=== PATIENT | male | born 1990 | race Caucasian/White ===

== ENCOUNTER 2019-04-11 18:08 | Emergency (ER) | payer SELFPAY ==
[~2019-04-11] VITALS: Ht 180.3 cm; Wt 95.3 kg
[2019-04-11 19:30] VITALS: BP 126/81
[2019-04-11 19:32] LABS: Eosinophils # (auto) 0 uL; Eosinophils % (auto) 0.4 % (0.0-7.0); Hemoglobin 18.8 g/dL (13.5-17.5); Neutrophils # (auto) 9.4 uL
[2019-04-11 19:33] LABS: Basophils # (auto) 0.1 uL; Basophils % (auto) 0.5 % (0.0-2.0); Lymphocytes # (auto) 1.4 uL; Lymphocytes % (auto) 11.8 % (10.0-50.0); Mean Corpuscular Hemoglobin 31.3 pg (28.0-32.0); Mean Corpuscular Hgb Conc. 35.4 g/dL (32.0-36.0); Mean Corpuscular Volume 88.5 fL (80.0-100.0); Monocytes # (auto) 0.7 uL; Monocytes % (auto) 6.1 % (0.0-12.0); Neutrophils % (auto) 81.2 % (37.0-80.0); Nucleated Red Blood Cells % 0.5 %; Platelet Count (auto) 247 10^3/uL (140-450); Red Blood Cells 5.99 10^6/uL (4.5-5.90); Red Cell Distribution Width 12.5 % (11.8-14.3); White Blood Cell 11.6 10^3/uL (4.4-10.8)
[2019-04-11 19:36] LABS: Albumin 3.9 g/dL (3.4-5.0); BUN/Creatinine Ratio 11.2; Calcium 9.2 mg/dL (8.5-10.1)
[2019-04-11 19:38] LABS: Bilirubin, Total 0.9 mg/dL (0.2-1.0)
[2019-04-11] MEDS ORDERED: THIAMINE 100mg/ml INJ (200mg/2ml VIAL) ONE (20:41)
[2019-04-11] MEDS ORDERED: levETIRAcetam 500 MG/5ML INJ IV ONE (20:50)
[2019-04-12] MEDS ORDERED: FOLIC ACID 1 MG, MULTIPLE VITAMIN 10 ML, MAGNESIUM SULF SDV 50% 8 MEQ, THIAMINE INJ 100... INJ SCH ×5 (12:00)
== END 2019-04-11 23:50 | disposition home or self-care (01) ==
LOC: EDBD 18:08 → ER 18:10
DX: G40.909 Epilepsy, unspecified, not intractable, without status epilepticus (principal)
CPT/HCPCS: 36415; 70450; 72125; 80053; 80320; 85025; 96365; 96367; 99285; J1953; J3411; J7060

== ENCOUNTER 2020-08-10 02:27 | Emergency (ER) | payer SELFPAY ==
[~2020-08-10] VITALS: Ht 180.3 cm; Wt 90.7 kg
[2020-08-10 02:28] VITALS: BP 139/100
== END 2020-08-10 03:13 | disposition home or self-care (01) ==
LOC: ER 02:29
DX: R56.9 Unspecified convulsions (principal); Z76.0 Encounter for issue of repeat prescription

== ENCOUNTER 2021-03-27 14:10 | Inpatient (IN) | payer MEDICAID, OTHER ==
[~2021-03-27] VITALS: Ht 180.3 cm; Wt 99.8 kg
[2021-03-27] MEDS ORDERED: LORazepam 2MG/ML-1ML VIAL ONE (15:17)
[2021-03-27] MEDS ORDERED: SODIUM CHLORIDE 0.9% 1,000 ML IV ONE ×2 (15:30)
[2021-03-27] MEDS ORDERED: LORazepam 2MG/ML-1ML VIAL IV ONE ×2 (15:30)
[2021-03-27 17:51] LABS: Basophils # (auto) 0 10 ^3/uL (0-0.2); Basophils % (auto) 0.2 % (0.0-2.0); Eosinophils # (auto) 0 10 ^3/uL (0-0.8); Eosinophils % (auto) 0.1 % (0.0-7.0); Hematocrit 48.2 % (41.0-53.0); Lymphocytes # (auto) 1.1 10 ^3/uL (0.4-5.4); Lymphocytes % (auto) 10.3 % (10.0-50.0); Mean Corpuscular Hemoglobin 30.3 pg (28.0-32.0); Mean Corpuscular Hgb Conc. 35.2 g/dL (32.0-36.0); Mean Corpuscular Volume 85.9 fL (80.0-100.0); Monocytes # (auto) 0.5 10 ^3/uL (0-1.3); Neutrophils # (auto) 8.8 10 ^3/uL (1.6-8.6); Neutrophils % (auto) 84.4 % (37.0-80.0); Nucleated Red Blood Cells % 0.3 %; Red Blood Cells 5.61 10^6/uL (4.5-5.90); Red Cell Distribution Width 13.2 % (11.8-14.3); White Blood Cell 10.4 10^3/uL (4.4-10.8)
[2021-03-27 18:09] LABS: Albumin 4.3 g/dL (3.4-5.0); Potassium 3.6 mmol/L (3.5-5.1)
[2021-03-27 18:11] LABS: BUN/Creatinine Ratio 11.1
[2021-03-27 18:14] LABS: Bilirubin, Total 0.6 mg/dL (0.2-1.0); Total Protein 7.5 g/dL (6.4-8.2)
[2021-03-27] MEDS ORDERED: ONDANSETRON HCL 4 MG/2 ML VIAL IV PRN (20:45)
[2021-03-27] MEDS ORDERED: TEMAZEPAM 15 MG CAP PO PRN (20:45)
[2021-03-27] MEDS ORDERED: LORazepam 2MG/ML-1ML VIAL IV PRN (20:45)
[2021-03-27] MEDS ORDERED: ACETAMINOPHEN 325 MG TAB PO PRN (20:45)
[2021-03-27] MEDS: levETIRAcetam 500 MG TAB PO SCH (22:44)
[2021-03-28] MEDS ORDERED: LEVE500T32 PO (00:44)
[2021-03-28 05:00] VITALS: BP 118/78
[2021-03-28] MEDS: levETIRAcetam 500 MG TAB PO SCH (08:51)
[2021-03-28 09:00] VITALS: BP 108/74
[2021-03-28 13:00] VITALS: BP 101/69
[2021-03-28 17:00] VITALS: BP 117/83
== END 2021-03-28 17:44 | disposition left against medical advice (07) | DRG 53 ==
LOC: EDBD 14:10 → ER 14:16 → OVERFLOW 20:43 → CENTRAL 23:40
PROVIDERS: ADMIT Nurse Practitioner; ATTEND Family Medicine
DX: G40.909 Epilepsy, unspecified, not intractable, without status epilepticus (principal); F12.10 Cannabis abuse, uncomplicated; F14.10 Cocaine abuse, uncomplicated; Z53.29 Procedure and treatment not carried out because of patient's decision for other reasons; Z91.19 Patient's noncompliance with other medical treatment and regimen; Z71.6 Tobacco abuse counseling; Z71.51 Drug abuse counseling and surveillance of drug abuser; Z20.822 Contact with and (suspected) exposure to COVID-19
CPT/HCPCS: 36415; 70450; 80053; 85025; 87426; 96361; 96365; 96375; G0378; J7060